=== PATIENT | male | born 1960 ===

== ENCOUNTER 2017-08-16 18:36 | Emergency (ER) | payer SELFPAY ==
[2017-08-16 18:41] VITALS: BP 134/77; PULSE 88; RESP 20; TEMP 98.5; O2SAT 99
--- NOTE | 2017-08-16 19:50 | C.PDOC ---
History Of Present Illness 56yo male, presents to ED for evaluation of right arm injury sustained prior to arrival. Patient states he was attempting to push a heavy bernard off a shelf and "swiped at it", resulting in the injury. He denies any weakness, numbness or tingling to the arm and offers no other medical complaints. PMD: NOne Time Seen by Provider: 08/16/17 18:58 Chief Complaint (Nursing): Upper Extremity Problem/Injury History Per: Patient History/Exam Limitations: no limitations Onset/Duration Of Symptoms: Other (prior to arrival) Current Symptoms Are (Timing): Still Present Additional History Per: Patient Past Medical History Reviewed: Historical Data, Nursing Documentation, Vital Signs Vital Signs: Last Vital Signs Temp 98.5 F 08/16/17 18:39 Pulse 88 08/16/17 18:39 Resp 20 08/16/17 18:39 BP 134/77 08/16/17 18:39 Pulse Ox 99 08/16/17 20:12 - Medical History PMH: No Chronic Diseases Surgical History: No Surg Hx Family History: States: No Known Family Hx - Social History Hx Alcohol Use: No Hx Substance Use: No - Immunization History Hx Tetanus Toxoid Vaccination: No Hx Influenza Vaccination: No Hx Pneumococcal Vaccination: No Review Of Systems Musculoskeletal: Positive for: Other (right biceps/upper arm injury) Neurological: Negative for: Weakness, Numbness, Other (tingling) Physical Exam - Physical Exam Appears: Non-toxic Skin: Warm, Dry Head: Atraumatic, Normacephalic Eye(s): bilateral: Normal Inspection, PERRL, EOMI Nose: No Discharge Oral Mucosa: Moist Neck: Supple Chest: Symmetrical Cardiovascular: Rhythm Regular, No Murmur Respiratory: No Decreased Breath Sounds, No Wheezing Extremity: Normal ROM, Other (bulge noted to right biceps area with felxion, + mild tenderness. no ecchymosis no warmth noted.) Pulses: Left Radial: Normal, Right Radial: Normal Neurological/Psych: Oriented x3, Normal Speech, Normal Cognition, Normal Motor, Normal Sensation ED Course And Treatment O2 Sat by Pulse Oximetry: 99 (RA) Pulse Ox Interpretation: Normal Medical Decision Making Medical Decision Making: Impression: Right upper arm injury Plan: -- Right arm wrapped in an aidan bandage. Patient instructed to follow up in Health clinic and given referral for orthopedic follow up. Stable for discharge home. Disposition Counseled Patient/Family Regarding: Diagnosis, Need For Followup, Rx Given - Disposition Referrals: [facility] [Outside] [facility] [Outside] Disposition: LEFT W/O BEING SEEN - ER ONLY Disposition Time: 19:47 Condition: GOOD Additional Instructions: Por favor austin samira venda de as para apoyo. Gully ibuprofeno para el dolor; llame a los servicios de conserjera para ayudar a organizar samira consulta ortopdica para pacientes ambulatorios en la clnica. Por favor, trate de evitar levantar objetos pesados. Please put aidan bandage on for support. Take ibuprofen for pain;. call towboat operator services to help arrange for an outpatient orthopedic appointment at the clinic. Please try to avoid heavy lifting. Prescriptions: Ibuprofen [Motrin] 600 mg PO TID #30 tab Instructions: Muscle Strain (DC), Biceps Tendinopathy Forms: Gen Discharge Inst Congolese, [employer] (Congolese) Print Language: OMANI - Clinical Impression Clinical Impression: Biceps tendon tear - PA / HUNTER GUIDE / Resident Statement MD/DO has reviewed & agrees with the documentation as recorded. - Scribe Statement The provider has reviewed the documentation as recorded by the Scribe (Kate Tinoco) All medical record entries made by the Scribe were at my direction and personally dictated by me. I have reviewed the chart and agree that the record accurately reflects my personal performance of the history, physical exam, medical decision making, and the department course for this patient. I have also personally directed, reviewed, and agree with the discharge instructions and disposition.
== END 2017-08-16 20:04 | disposition home or self-care (01) ==
LOC: C.ER 18:36
DX: S46.211A Strain of muscle, fascia and tendon of other parts of biceps, right arm, initial encounter (principal); X50.9XXA Other and unspecified overexertion or strenuous movements or postures, initial encounter